=== PATIENT | female | born 1950 | race Asian ===

== ENCOUNTER 2018-02-21 05:39 | Emergency (ER) | payer OTHER ==
[~2018-02-21] VITALS: Ht 149.9 cm; Wt 54.4 kg
[2018-02-21 05:45] VITALS: BP_SYST 152
[2018-02-21] MEDS ORDERED: NAPROXEN 250 MG TABLET PO ONE (06:15)
[2018-02-21] MEDS ORDERED: NAPROXEN 250 MG TABLET ONE (06:48)
== END 2018-02-21 07:04 | disposition home or self-care (01) ==
LOC: SED 05:39
DX: M25.471 Effusion, right ankle (principal)
CPT/HCPCS: 99284

== ENCOUNTER 2018-07-15 15:06 | Emergency (ER) | payer OTHER ==
[~2018-07-15] VITALS: Ht 149.9 cm; Wt 59.0 kg
[2018-07-15 15:10] VITALS: BP_SYST 137
[2018-07-15 16:49] VITALS: BP_SYST 137
== END 2018-07-15 16:49 | disposition home or self-care (01) ==
LOC: SED 15:06
DX: B02.9 Zoster without complications (principal); E78.00 Pure hypercholesterolemia, unspecified; I10 Essential (primary) hypertension; Z90.89 Acquired absence of other organs
CPT/HCPCS: 99283